=== PATIENT | female | born 1965 | race Caucasian/White ===

== ENCOUNTER 2016-08-24 11:32 | Emergency (ER) | payer BC ==
--- NOTE | 2016-08-24 11:40 | ER Document Report ---
ED Medical Screen (RME) - General Chief Complaint: Knee Injury Stated Complaint: KNEE SWELLING Time seen by provider: 11:38 Mode of Arrival: Wheelchair Information source: Patient Notes: 51-year-old female presents to ED for swelling general body. 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 She goes to pain management. She states that the only thing that makes her swelling go down his Solu-Medrol. States she has pain medication at home but does not when she needs. States she has Rh- and lupus. I have greeted and performed a rapid initial assessment of this patient. A comprehensive ED assessment and evaluation of the patient, analysis of test results and completion of medical decision making process will be conducted by an additional ED providers. TRAVEL OUTSIDE OF THE [place] IN LAST 30 DAYS: No - Related Data Allergies/Adverse Reactions: codeine [Codeine] Allergy (Verified 05/07/16 11:27) ketorolac tromethamine [From Toradol] Allergy (Verified 05/07/16 11:27) morphine [Morphine] Allergy (Verified 05/07/16 11:27) Past Medical History - Social History Family history: Reviewed & Not Pertinent GI Medical History: Reports: Hx Gastroesophageal Reflux Disease, Hx Hepatitis - C Musculoskeltal Medical History: Reports Hx Arthritis - RA, Reports Hx Gout Psychiatric Medical History: Reports: Hx Depression - anxiety Infectious Medical History: Reports: Hx Hepatitis - C Past Surgical History: Reports: Hx Appendectomy, Hx Section, Hx Cholecystectomy, Hx Orthopedic Surgery - L knee, R ankle - Immunizations Immunizations up to date: Yes Hx Diphtheria, Pertussis, Tetanus Vaccination: Yes
[2016-08-24] MEDS ORDERED: DEXAMETHASONE SOD PHOS INJ 10 MG/1 ML VIAL IM ONE (13:10)
--- NOTE | 2016-08-24 13:40 | ER Document Report ---
ED General - General Mode of Arrival: Wheelchair Information source: Patient TRAVEL OUTSIDE OF THE [place] IN LAST 30 DAYS: No - HPI Onset: Other - see above Onset/Duration: Persistent Quality of pain: Achy Associated symptoms: None Similar symptoms previously: Yes Recently seen / treated by doctor: Yes - General Chief Complaint: Hand Swelling Stated Complaint: KNEE SWELLING Notes: Patient is a 51-year-old female that presents to the emergency department today with complaints of a couple of weeks of "joint pain". Patient has a history of rheumatoid arthritis and lupus. Patient states her route sales driver will not put her on her usual RA medicine because of tooth infections, he states that if she is on immunosuppressant medication that the infection in her teeth can kill her. Patient states her pain is in her knees bilaterally as well as her hands. Patient states she needs steroids to help decrease inflammation. (KAVITA SIDDIQUI) - Related Data Allergies/Adverse Reactions: codeine [Codeine] Allergy (Verified 08/24/16 11:40) ketorolac tromethamine [From Toradol] Allergy (Verified 08/24/16 11:40) morphine [Morphine] Allergy (Verified 08/24/16 11:40) Past Medical History - General Information source: Patient - Social History Smoking Status: Current Every Day Smoker Cigarette use (# per day): Yes Chew tobacco use (# tins/day): No Frequency of alcohol use: None Drug Abuse: None Lives with: Family Family History: Reviewed & Not Pertinent, Other - Lupus Patient has suicidal ideation: No Patient has homicidal ideation: No GI Medical History: Reports: Hx Gastroesophageal Reflux Disease, Hx Hepatitis - C Musculoskeltal Medical History: Reports Hx Arthritis - RA, Reports Hx Gout, Reports Other - Lupus Psychiatric Medical History: Reports: Hx Depression - anxiety Infectious Medical History: Reports: Hx Hepatitis - C Past Surgical History: Reports: Hx Appendectomy, Hx Section, Hx Cholecystectomy, Hx Orthopedic Surgery - L knee, R ankle - Immunizations Immunizations up to date: Yes Hx Diphtheria, Pertussis, Tetanus Vaccination: Yes Review of Systems - Review of Systems Constitutional: No symptoms reported EENT: No symptoms reported Cardiovascular: No symptoms reported Respiratory: No symptoms reported Gastrointestinal: No symptoms reported Genitourinary: No symptoms reported Female Genitourinary: No symptoms reported Musculoskeletal: See HPI, Joint pain - bilateral knees, hands, and wrist pain Skin: No symptoms reported Hematologic/Lymphatic: No symptoms reported Neurological/Psychological: No symptoms reported -: Yes All other systems reviewed and negative Physical Exam - General General appearance: Appears well, Alert In distress: None - HEENT Head: Normocephalic, Atraumatic Eyes: Normal Conjunctiva: Normal Extraocular movements intact: Yes - Respiratory Respiratory status: No respiratory distress Chest status: Nontender - Abdominal Inspection: Normal Distension: No distension - Extremities General upper extremity: Other - complains of pain in hands/wrists General lower extremity: Other - complains of pain with palpation of knees bilaterally - Neurological Neuro grossly intact: Yes Cognition: Normal Orientation: AAOx4 Speech: Normal - Psychological Associated symptoms: Normal affect, Normal mood - Skin Skin Temperature: Warm Skin Moisture: Dry Skin Color: Normal - Vital signs Vitals: Temp Pulse Resp BP Pulse Ox 97.9 F 110 H 18 137/88 H 97 08/24/16 11:37 08/24/16 11:37 08/24/16 11:37 08/24/16 11:37 08/24/16 11:37 (AYE FRANKLIN) (KAVITA SIDDIQUI) Course - Re-evaluation Re-evalutation: 08/24/16 13:53 I personally performed the services described in the documentation, reviewed and edited the documentation which was dictated to my scribe in my presence, and it accurately records my words and actions. Patient presents emergency Department with diffuse joint pain in her hands and knees. She has a history of lupus and rheumatoid arthritis and has a route sales driver that she sees in [place]. Recently her route sales driver told her that he can give her any medications for the rheumatoid arthritis or lupus until she got her teeth pulled. She said she hasn't been able to get in with the dentist yet. She has a local primary care physician and goes to pain management where she gets 2 mg of Dilaudid 4 times a day. On examination she is complaining of pain in her wrist and hands as well as her ankles and feet bilaterally no acute red hot swelling or deformity pulse sensation motor intact no neurological deficits or cellulitis. Requesting a shot of Decadron which I gave her. She does have a follow-up appointment with her route sales driver next week and discussed reasons for ED return sooner (AYE FRANKLIN) - Vital Signs Vital signs: Temp Pulse Resp BP Pulse Ox 98.2 F 101 H 16 146/95 H 97 08/24/16 14:37 08/24/16 14:37 08/24/16 14:37 08/24/16 14:37 08/24/16 14:37 (AYE FRANKLIN) (KAVITA SIDDIQUI) Discharge - Discharge Clinical Impression: Chronic joint pain Condition: Stable Disposition: HOME, SELF-CARE Additional Instructions: Chronic Pain Control, lupus, and rheumatoid arthritis Stress, inactivity, and depression make pain more severe regardless of the cause of the pain. Stress and poor physical condition can cause pain such as headaches and backache. Relaxation: Rest in a quiet place with your eyes closed for 20 minutes twice daily. Concentrate on a pleasant image, or simply "feel" your breathing. Clear your mind. Stress management: Deal with your "stressors." Either take action, or eliminate the stressor from your life. Don't let things hang over you. Accept those things you can't change. Nutrition: Eat small, balanced meals -- don't skip, don't overeat. Meals should be high-carbohydrate, low-sugar, low-fat. Exercise: Exercise helps painful conditions and eases stress. Get 30 minutes of moderate exercise, five days a week. Do an activity that does not flare your pain. Precautions: Pain which continues to disrupt daily activities, or which changes in nature, requires a medical evaluation. Pain Clinic referral is available. We do not manage chronic pain in the Emergency Department. We will try to appropriately help you through an acute flare of your chronic painful condition , but for on-going chronic pain that does not improve, you will need to see your private doctor or painter and grader cork. We do not provide repeated medication management of chronic painful conditions. If you wish, we can provide the name of local pain management physicians. Follow-up with your route sales driver next week as scheduled return for increasing worsening or new symptoms Scribe Documentation - Scribe Written by Tesfaye:: Tesfaye Prakash, 08/24/16 0787 acting as scribe for :: Jesus
[2016-08-24 15:40] VITALS: BP 146/95
== END 2016-08-24 14:37 | disposition home or self-care (01) ==
LOC: ER 11:32
DX: G89.29 Other chronic pain (principal); M25.561 Pain in right knee; M25.562 Pain in left knee; M25.542 Pain in joints of left hand; M25.541 Pain in joints of right hand; M25.539 Pain in unspecified wrist; K04.7 Periapical abscess without sinus; M06.9 Rheumatoid arthritis, unspecified; F17.210 Nicotine dependence, cigarettes, uncomplicated; Z88.5 Allergy status to narcotic agent; Z88.8 Allergy status to other drugs, medicaments and biological substances; Z79.891 Long term (current) use of opiate analgesic
CPT/HCPCS: 99283; 96372; J1100

== ENCOUNTER 2016-12-05 07:40 | Emergency (ER) | payer BC ==
[2016-12-05 07:46] VITALS: BP 140/98
[2016-12-05] MEDS ORDERED: IBUPROFEN 800 MG TABLET PO ONE (08:44)
[2016-12-05] MEDS ORDERED: MELOXICAM 7.5 MG TABLET PO ONE (09:16)
--- NOTE | 2016-12-05 09:16 | ER Document Report ---
HPI - HPI Patient complains to provider of: knee pain Pain Level: 5 Context: Patient is a 51-year-old female presents emergency Department complaining of acute on chronic knee pain. Patient states that she has bilateral chronic knee pain due to osteoarthritis. She states that she has limited mobility due to this diagnosis. She states that on December 02, that she tripped and landed on her knees when she was getting out of the shower. She admits to bilateral knee pain worse on the left than the right constant throbbing pain. She's been taking Tylenol at home with minimal improvement in her symptoms. Patient is established a follow-up with her primary care on December 10. PCP Dr. Dawson - REPRODUCTIVE Reproductive: DENIES: : - DERM Skin Color: Normal Past Medical History - Social History Smoking Status: Current Every Day Smoker Frequency of alcohol use: None Drug Abuse: None Family History: Reviewed & Not Pertinent, Other - Lupus Patient has suicidal ideation: No Patient has homicidal ideation: No Renal/ Medical History: Denies: Hx Peritoneal Dialysis GI Medical History: Reports: Hx Gastroesophageal Reflux Disease, Hx Hepatitis - C Musculoskeltal Medical History: Reports Hx Arthritis - RA, Reports Hx Gout Psychiatric Medical History: Reports: Hx Depression - anxiety Infectious Medical History: Reports: Hx Hepatitis - C Past Surgical History: Reports: Hx Appendectomy, Hx Section, Hx Cholecystectomy, Hx Orthopedic Surgery - L knee, R ankle - Immunizations Immunizations up to date: Yes Hx Diphtheria, Pertussis, Tetanus Vaccination: Yes Vertical Provider Document - CONSTITUTIONAL Agree With Documented VS: Yes Exam Limitations: No Limitations General Appearance: WD/WN, No Apparent Distress - INFECTION CONTROL TRAVEL OUTSIDE OF THE [place] IN LAST 30 DAYS: No - HEENT HEENT: Atraumatic, Normocephalic - NECK Neck: Normal Inspection, Other - Full range of motion. No cervical motion tenderness, spinous processes or paraspinous muscle tenderness. - RESPIRATORY Respiratory: Breath Sounds Normal, No Respiratory Distress, Chest Non-Tender. negative: Rales, Rhonchi, Wheezing O2 Sat by Pulse Oximetry: 97 - CARDIOVASCULAR Cardiovascular: Regular Rate, Regular Rhythm, No Murmur Pulses: Normal: Radial, Dorsalis pedis - MUSCULOSKELETAL/EXTREMETIES Musculoskeletal/Extremeties: MAEW, FROM, Tender - Tenderness palpation mainly on the lateral aspects of bilateral knees. Evidence of soft tissue swelling surrounding the knees that are she states is her baseline. 1+ pitting edema in the pretibial area bilaterally. No evidence of erythema, induration around the joints. - NEURO Level of Consciousness: Awake, Alert, Appropriate Motor/Sensory: No Motor Deficit, No Sensory Deficit - DERM Integumentary: Warm, Dry, No Rash Course - Re-evaluation Re-evalutation: 12/05/16 10:22 Patient is a 51-year-old female who is hemodynamically stable, no acute distress and afebrile. No evidence of septic arthritis upon evaluation. X-ray show evidence of chronic osteoarthritis and minimal joint effusion. Discussed with patient to follow-up with her primary care for chronic pain management and to be referred for orthopedics. - Vital Signs Vital signs: Temp Pulse Resp BP Pulse Ox 98.8 F 117 H 18 140/98 H 97 12/05/16 07:44 12/05/16 07:44 12/05/16 07:44 12/05/16 07:44 12/05/16 07:44 - Diagnostic Test Radiology reviewed: Image reviewed, Reports reviewed Discharge - Discharge Clinical Impression: Osteoarthritis Condition: Good Disposition: HOME, SELF-CARE Instructions: Osteoarthritis ([facility]), Ice & Elevation ([facility]) Additional Instructions: Please take your medication as prescribed. Follow-up with your primary care provider this week or as scheduled Prescriptions: Meloxicam [Mobic 7.5 Mg Tablet] 7.5 mg PO BID #20 tablet Prednisone [Deltasone 10 mg Tablet] 10 mg PO ASDIR PRN #21 tablet PRN Reason: Forms: Elevated Blood Pressure Referrals: RODOLFO DAWSON MD [NO LOCAL MD] - Follow up as needed
== END 2016-12-05 09:22 | disposition home or self-care (01) ==
LOC: ER 07:40
DX: M17.0 Bilateral primary osteoarthritis of knee (principal); M25.561 Pain in right knee; M25.562 Pain in left knee; W19.XXXA Unspecified fall, initial encounter; Y93.89 Activity, other specified; G89.29 Other chronic pain; F17.200 Nicotine dependence, unspecified, uncomplicated
CPT/HCPCS: 99284

== ENCOUNTER 2017-02-25 12:42 | Inpatient (IN) | payer BC ==
[2017-02-25] MEDS ORDERED: ONDANSETRON 4 MG TAB.RAPDIS PO ONE (13:14)
[2017-02-25] MEDS ORDERED: NORMAL SALINE 1000 ML 1,000 ML IV ONE (13:15)
--- NOTE | 2017-02-25 13:18 | ER Document Report ---
ED Medical Screen (RME) - General Chief Complaint: Shortness Of Breath Stated Complaint: VOMITING Time Seen by Provider: 02/25/17 13:14 Mode of Arrival: Ambulatory Information source: Patient TRAVEL OUTSIDE OF THE [place] IN LAST 30 DAYS: No - HPI Onset: Other - 4 DAYS Onset/Duration: Gradual Quality of pain: Achy, Dull Severity: Moderate Associated Symptoms: Chills, Diarrhea, Nausea, Sweating, Vomiting Exacerbated by: Food Relieved by: Denies Similar symptoms previously: Yes - NOT RECENT Recently seen / treated by doctor: No - Related Data Allergies/Adverse Reactions: codeine [Codeine] Allergy (Verified 02/25/17 12:55) ketorolac tromethamine [From Toradol] Allergy (Verified 02/25/17 12:55) morphine [Morphine] Allergy (Verified 02/25/17 12:55) Past Medical History - Social History Family history: Reviewed & Not Pertinent Renal/ Medical History: Denies: Hx Peritoneal Dialysis GI Medical History: Reports: Hx Gastroesophageal Reflux Disease, Hx Hepatitis - C Musculoskeltal Medical History: Reports Hx Arthritis - RA, Reports Hx Gout, Reports Other - LUPUS?? Psychiatric Medical History: Reports: Hx Depression - anxiety Infectious Medical History: Reports: Hx Hepatitis - C Past Surgical History: Reports: Hx Appendectomy, Hx Section, Hx Cholecystectomy, Hx Orthopedic Surgery - L knee, R ankle - Immunizations Immunizations up to date: Yes Hx Diphtheria, Pertussis, Tetanus Vaccination: Yes Review of Systems - Review of Systems Constitutional: See HPI EENT: No symptoms reported Respiratory: No symptoms reported Gastrointestinal: See HPI Genitourinary: No symptoms reported Physical Exam - Vital signs Vitals: Temp Pulse Resp BP Pulse Ox 98.7 F 116 H 18 137/76 H 96 02/25/17 12:52 02/25/17 12:52 02/25/17 12:52 02/25/17 12:52 02/25/17 12:52 Interpretation: Tachycardic. No: Hypotensive, Tachypneic, Febrile - General General appearance: Alert In distress: Mild - Respiratory Respiratory status: No respiratory distress Course - Vital Signs Vital signs: Temp Pulse Resp BP Pulse Ox 98.7 F 116 H 18 137/76 H 96 02/25/17 12:52 02/25/17 12:52 02/25/17 12:52 02/25/17 12:52 02/25/17 12:52
[2017-02-25] MEDS ORDERED: ONDANSETRON 4 MG TAB.RAPDIS ONE (14:30)
[2017-02-25 14:42] LABS: HEMATOCRIT 32.6 % (36.0-47.0); HEMOGLOBIN 10.8 g/dL (12.0-15.5); HGB HCT DIFFERENCE -0.2; MEAN CORPUSCULAR HEMOGLOBIN 27.6 pg (27.0-33.4); MEAN CORPUSCULAR HGB CONC 33.1 g/dL (32.0-36.0); MEAN CORPUSCULAR VOLUME 83 fl (80-97); RED BLOOD COUNT 3.91 10^6/uL (3.72-5.28); RED CELL DISTRIBUTION WIDTH 17.4 % (11.5-14.0); WHITE BLOOD COUNT 24.7 10^3/uL (4.0-10.5)
[2017-02-25 14:48] LABS: BAND NEUTROPHILS % (MANUAL) 4 % (3-5); BASOPHILS % (MANUAL) 0 % (0-2); EOSINOPHILS % (MANUAL) 1 % (0-6); LYMPHOCYTES % (MANUAL) 12 % (13-45); TOTAL CELLS COUNTED 100
--- NOTE | 2017-02-25 14:50 | ER Document Report ---
ED General - General Chief Complaint: Shortness Of Breath Stated Complaint: VOMITING Time Seen by Provider: 02/25/17 13:14 Mode of Arrival: Ambulatory Information source: Patient TRAVEL OUTSIDE OF THE [place] IN LAST 30 DAYS: No - HPI Patient complains to provider of: Cough, shortness of breath, diarrhea Onset: Last week Onset/Duration: Persistent, Worse Quality of pain: Achy Severity: Mild Pain Level: 2 Associated symptoms: Body/muscle aches, Nonproductive cough, Diarrhea, Nausea, Vomiting, Shortness of breath Exacerbated by: Coughing Relieved by: Denies Notes: Patient is a 52-year-old female with history of SLE and rheumatoid arthritis, who presents to the emergency room with 1 week history of worsening cough, shortness of breath, difficulty breathing at times, and vomiting over the past 3 -4 days, she also reports a fever, reports feeling this way in the past when she was diagnosed with pneumonia, patient quit smoking approximately 1 week ago when symptoms began - Related Data Allergies/Adverse Reactions: codeine [Codeine] Allergy (Verified 02/25/17 17:03) ketorolac tromethamine [From Toradol] Allergy (Verified 02/25/17 17:03) morphine [Morphine] Allergy (Verified 02/25/17 17:03) Home Medications: Current Home Medications Adalimumab [Humira] 40 mg SQ ASDIR PRN 02/25/17 [History] Dexlansoprazole [Dexilant 60 mg Capsule] 60 mg PO QAM 02/25/17 [History] Hydromorphone HCl [Dilaudid 2 mg Tablet] 2 mg PO 5XDP PRN 02/25/17 [History] Hydroxychloroquine Sulfate 200 mg PO BID 02/25/17 [History] Sulfasalazine 3 tab PO BID 02/25/17 [History] Past Medical History - General Information source: Patient - Social History Smoking Status: Former Smoker - Quit 1 week ago Family History: Reviewed & Not Pertinent, Other - Lupus Renal/ Medical History: Denies: Hx Peritoneal Dialysis GI Medical History: Reports: Hx Gastroesophageal Reflux Disease, Hx Hepatitis - C Musculoskeltal Medical History: Reports Hx Arthritis - RA, Reports Hx Gout, Reports Other - LUPUS?? Psychiatric Medical History: Reports: Hx Depression - anxiety Infectious Medical History: Reports: Hx Hepatitis - C Past Surgical History: Reports: Hx Appendectomy, Hx Section, Hx Cholecystectomy, Hx Orthopedic Surgery - L knee, R ankle - Immunizations Immunizations up to date: Yes Hx Diphtheria, Pertussis, Tetanus Vaccination: Yes Review of Systems - Review of Systems Constitutional: See HPI EENT: No symptoms reported Cardiovascular: No symptoms reported Respiratory: See HPI Gastrointestinal: See HPI Genitourinary: No symptoms reported Female Genitourinary: No symptoms reported Musculoskeletal: No symptoms reported Skin: No symptoms reported Hematologic/Lymphatic: No symptoms reported Neurological/Psychological: No symptoms reported -: Yes All other systems reviewed and negative Physical Exam - Vital signs Vitals: Temp Pulse Resp BP Pulse Ox 98.7 F 116 H 18 137/76 H 96 02/25/17 12:52 02/25/17 12:52 02/25/17 12:52 02/25/17 12:52 02/25/17 12:52 Interpretation: Tachycardic - General General appearance: Alert In distress: None - HEENT Head: Normocephalic, Atraumatic Eyes: Normal Conjunctiva: Normal Extraocular movements intact: Yes Eyelashes: Normal Pupils: PERRL Sinus: Normal Nasal: Normal Mouth/Lips: Normal Mucous membranes: Normal Pharynx: Normal Neck: Normal - Respiratory Respiratory status: No respiratory distress Chest status: Nontender Breath sounds: Nonproductive cough, Rhonchi Chest palpation: Normal - Cardiovascular Rhythm: Regular Heart sounds: Normal auscultation Murmur: No - Abdominal Inspection: Normal Distension: No distension Bowel sounds: Normal Tenderness: Tender - Epigastric Organomegaly: No organomegaly - Back Back: Normal, Nontender - Extremities General upper extremity: Normal inspection, Nontender, Normal color, Normal ROM , Normal temperature General lower extremity: Normal inspection, Nontender, Normal color, Normal ROM , Normal temperature, Normal weight bearing. No: Zhanna's sign - Neurological Neuro grossly intact: Yes Cognition: Normal Orientation: AAOx4 Jose David Coma Scale Eye Opening: Spontaneous Silex Coma Scale Verbal: Oriented Silex Coma Scale Motor: Obeys Commands Jose David Coma Scale Total: 15 Speech: Normal Motor strength normal: LUE, RUE, LLE, RLE Sensory: Normal - Psychological Associated symptoms: Normal affect, Normal mood - Skin Skin Temperature: Warm Skin Moisture: Dry Skin Color: Normal Course - Re-evaluation Re-evalutation: 02/25/17 18:41 Patient with marked leukocytosis, patchy infiltrates on left lung on chest x-ray , mild hypoxia with tachycardia, admitted to the hospitalist service for pneumonia, patient is also immunosuppressed if she takes medication for rheumatoid arthritis and SLE, plan was discussed with patient and she is in agreement - Vital Signs Vital signs: Temp Pulse Resp BP Pulse Ox 98.6 F 86 20 102/62 100 02/25/17 17:00 02/25/17 14:36 02/25/17 18:00 02/25/17 14:36 02/25/17 18:00 - Laboratory Result Diagrams: 02/25/17 13:55 02/25/17 14:54 Laboratory results interpreted by me: 02/25/17 02/25/17 13:55 14:54 WBC 24.7 H Hgb 10.8 L Hct 32.6 L RDW 17.4 H Plt Count 467 H Seg Neuts % (Manual) 81 H Lymphocytes % (Manual) 12 L Monocytes % (Manual) 2 L Abs Neuts (Manual) 21.0 H ESR 101 H Potassium 2.7 L* Chloride 97 L Creatinine 0.50 L Direct Bilirubin 0.5 H Lipase < 10.0 L - Diagnostic Test Radiology reviewed: Image reviewed, Reports reviewed - Transfer of Care Care transferred to following provider: Dr. Faustin Critical Care Note - Critical Care Note Total time excluding time spent on procedures (mins): 30 Comments: Patient with signs and symptoms consistent with sepsis, she is tachycardic, with hypoxia, marked leukocytosis, and evidence of pneumonia on chest x-ray, admitted to the [facility] for further evaluation and treatment Discharge - Discharge Clinical Impression: Hypokalemia Pneumonia Qualifiers: Pneumonia type: due to unspecified organism Laterality: left Lung location: unspecified part of lung Qualified Code(s): J18.9 - Pneumonia, unspecified organism Sepsis Qualifiers: Sepsis type: sepsis due to unspecified organism Qualified Code(s): A41.9 - Sepsis, unspecified organism Respiratory failure Qualifiers: Chronicity: acute Respiratory failure complication: hypoxia Qualified Code(s): J96.01 - Acute respiratory failure with hypoxia Condition: Fair Disposition: ADMITTED INPATIENT Admitting Provider: Hospitalist Unit Admitted: [facility]
[2017-02-25 14:57] LABS: ANISOCYTOSIS 1+; HYPOCHROMASIA SLIGHT; TOXIC GRANULATION SLIGHT; TOXIC VACUOLATION PRESENT
[2017-02-25] MEDS ORDERED: HYDROMORPHONE HCL INJ/PF 2 MG/ML AMPULE IV ONE (15:35)
[2017-02-25 15:37] LABS: ERYTHROCYTE SEDIMENTATION RATE 101 mm/hr (0-30)
[2017-02-25 15:39] LABS: ALANINE AMINOTRANSFERASE 14 U/L (9-52); ALBUMIN 3.6 g/dL (3.5-5.0); ALKALINE PHOSPHATASE 87 U/L (38-126); ANION GAP 15 (5-19); ASPARTATE AMINO TRANSFERASE 15 U/L (14-36); BILIRUBIN,DIRECT 0.5 mg/dL (0.0-0.4); BILIRUBIN,TOTAL 0.7 mg/dL (0.2-1.3); BLOOD UREA NITROGEN 11 mg/dL (7-20); CARBON DIOXIDE 25 mmol/L (22-30); CHLORIDE 97 mmol/L (98-107); GLUCOSE 79 mg/dL (75-110); LIPASE < 10.0 U/L (23-300); SODIUM 137.1 mmol/L (137-145); TOTAL PROTEIN 7.3 g/dL (6.3-8.2)
[2017-02-25 15:41] LABS: POTASSIUM 2.7 mmol/L (3.6-5.0)
[2017-02-25] MEDS ORDERED: POTASSIUM CHLORIDE 10 MEQ TABLET.SA PO ONE (15:43)
[2017-02-25] MEDS ORDERED: AZITHROMYCIN INJ 500 MG VIAL IV ONE (16:08)
[2017-02-25] MEDS ORDERED: CEFTRIAXONE INJ 1000 MG VIAL IV ONE (16:08)
--- NOTE | 2017-02-25 16:08 | RADIOLOGY REPORT (SQ) ---
EXAM DESCRIPTION: CHEST PA/LAT COMPLETED DATE/TIME: 02/25/2017 3:56 pm REASON FOR STUDY: cough COMPARISON: March 2016 EXAM PARAMETERS: NUMBER OF VIEWS: two views TECHNIQUE: Digital Frontal and Lateral radiographic views of the chest acquired. RADIATION DOSE: NA LIMITATIONS: none FINDINGS: LUNGS AND PLEURA: Fairly diffuse patchy airspace densities are identified throughout the l eft lung most consistent with a patchy pneumonic infiltrate. The right lung is clear and well expand ed. No pleural effusions are identified. No pneumothorax is seen. MEDIASTINUM AND HILAR STRUCTURES: No masses or contour abnormalities. HEART AND VASCULAR STRUCTURES: Heart normal size. No evidence for failure. BONES: No acute findings. HARDWARE: None in the chest. OTHER: No other significant finding. IMPRESSION: Fairly diffuse patchy airspace densities in the left lung as noted above most consistent with a patchy pneumonic infiltrate. TECHNICAL DOCUMENTATION: JOB ID: [id number] [employer]- All Rights Reserved
[2017-02-25] MEDS ORDERED: NORMAL SALINE 1000 ML 1,000 ML IV PRN (16:32)
[2017-02-25] MEDS ORDERED: ALBUTEROL SULFATE 0.083% NEB 2.5 MG/3 ML AMPUL NEB PRN (16:36)
[2017-02-25] MEDS ORDERED: POTASSI CL 20 MEQ/50 ML RIDER 20 MEQ/50 ML RTUPB IV ONE (17:00)
[2017-02-25] MEDS ORDERED: HYDROCORTISONE SOD SUCCINATE INJ/PF 100 MG/2 ML SDV IV ONE (17:00)
--- NOTE | 2017-02-25 17:13 | PDOC H&P ---
History of Present Illness Admission Date/PCP: 02/25/17 16:36 PCP: RODOLFO SCOTT MD Patient Scheduling Coordinator: Dr. Cobos in [facility] Patient complains of: Cough History of Present Illness: CHERIE PERDUE is a 52 year old female with past medical history of SLE, RA on Humira presents with one-week duration worsening cough, shortness of breath, loose stools, fevers. Patient was smoking up until the onset of her illness. In the emergency department patient was noted to have oxygen saturation 85% on room air. She recovered with nasal cannula oxygen. She was found to have left lung field pneumonia on chest x-ray. Medications listed below have not been verified. Past Medical History Cardiac Medical History: Reports: None Pulmonary Medical History: Reports: None EENT Medical History: Reports: None Neurological Medical History: Reports: None Endocrine Medical History: Reports: None Renal/ Medical History: Reports: None Malignancy Medical History: Reports: None GI Medical History: Reports: Gastroesophageal Reflux Disease, Hepatitis - C Musculoskeltal Medical History: Reports: Arthritis - RA, Gout, Other - SLE Psychiatric Medical History: Reports: Depression, General Anxiety Disorder Past Surgical History Past Surgical History: Reports: Appendectomy, Section, Cholecystectomy , Orthopedic Surgery - L knee, R ankle Social History Information Source: Patient Lives with: Spouse/Significant other Smoking Status: Current Every Day Smoker Frequency of Alcohol Use: None Hx Recreational Drug Use: No - Advance Directive Resuscitation Status: Full Code Family History Family History: Other - Lupus Parental Family History Reviewed: Yes Children Family History Reviewed: Yes Sibling(s) Family History Reviewed.: Yes Medication/Allergy Home Medications: Adalimumab [Humira] 40 mg SQ ASDIR PRN 02/25/17 Dexlansoprazole [Dexilant 60 mg Capsule] 60 mg PO QAM 02/25/17 Hydroxychloroquine Sulfate 200 mg PO BID 02/25/17 Sulfasalazine 3 tab PO BID 02/25/17 Allergies/Adverse Reactions: codeine [Codeine] Allergy (Verified 02/25/17 17:03) ketorolac tromethamine [From Toradol] Allergy (Verified 02/25/17 17:03) morphine [Morphine] Allergy (Verified 02/25/17 17:03) Review of Systems Constitutional: PRESENT: chills, fatigue, fever(s), weakness. ABSENT: headache( s), weight gain, weight loss Eyes: ABSENT: visual disturbances Ears: ABSENT: hearing changes Cardiovascular: PRESENT: dyspnea on exertion. ABSENT: chest pain, edema, orthropnea, palpitations Respiratory: PRESENT: cough, dyspnea. ABSENT: hemoptysis Gastrointestinal: ABSENT: abdominal pain, constipation, diarrhea, hematemesis, hematochezia, nausea, vomiting Genitourinary: ABSENT: dysuria, hematuria Musculoskeletal: ABSENT: joint swelling Integumentary: ABSENT: rash, wounds Neurological: ABSENT: abnormal gait, abnormal speech, confusion, dizziness, focal weakness, syncope Psychiatric: ABSENT: anxiety, depression, homidical ideation, suicidal ideation Endocrine: ABSENT: cold intolerance, heat intolerance, polydipsia, polyuria Hematologic/Lymphatic: ABSENT: easy bleeding, easy bruising Physical Exam Vital Signs: Temp Pulse Resp BP Pulse Ox 98.6 F 86 18 102/62 83 L 02/25/17 17:00 02/25/17 14:36 02/25/17 14:36 02/25/17 14:36 02/25/17 14:36 PHYSICAL EXAM: GENERAL: Ill-appearing, no acute distress HEENT: Normocephalic, no scleral icterus, conjunctiva clear, EOEM intact, PERRLA , moist mucous membranes NECK: trachea midline, no thyromegally RESPIRATORY: Clear to auscultation, no overt wheezes or rhonchi in all posterior lung fry CARDIAC: Regular rate and rhythm, no murmur/cale/rub ABDOMEN: Soft, no distension, no tenderness, no guarding, normal bowel sounds, negative Sheldon sign RECTAL: deferred : deferred EXTREMITIES: No edema, cyanosis, clubbing MUSCULOSKELETAL: No joint swelling or deformity VASCULAR: normal peripheral pulses NEUROLOGIC: Alert, oriented to person/place/time, normal speech, cranial nerves grossly intact, 5/5 strength in all extremities, tactile sensation intact in all extremities SKIN: No rash, no wounds, no worrisome skin lesions PSYCHIATRIC: Normal mood, normal affect Results Laboratory Results: Labs- All tests 24 hr 02/25/17 02/25/17 02/25/17 13:55 13:55 14:54 WBC 24.7 H RBC 3.91 Hgb 10.8 L Hct 32.6 L MCV 83 MCH 27.6 MCHC 33.1 RDW 17.4 H Plt Count 467 H Total Counted 100 Seg Neutrophils % Not Reportable Seg Neuts % (Manual) 81 H Band Neutrophils % 4 Lymphocytes % Not Reportable Lymphocytes % (Manual) 12 L Monocytes % Not Reportable Monocytes % (Manual) 2 L Eosinophils % Not Reportable Eosinophils % (Manual) 1 Basophils % Not Reportable Basophils % (Manual) 0 Absolute Neutrophils Not Reportable Abs Neuts (Manual) 21.0 H Absolute Lymphocytes Not Reportable Abs Lymphs (Manual) 3.0 Absolute Monocytes Not Reportable Abs Monocytes (Manual) 0.5 Absolute Eosinophils Not Reportable Absolute Eos (Manual) 0.2 Absolute Basophils Not Reportable Abs Basophils (Manual) 0.0 Toxic Granulation SLIGHT Toxic Vacuolation PRESENT Platelet Comment INCREASED Hypochromasia SLIGHT Anisocytosis 1+ ESR 101 H Sodium Cancelled 137.1 Potassium Cancelled 2.7 L* Chloride Cancelled 97 L Carbon Dioxide Cancelled 25 Anion Gap Cancelled 15 BUN Cancelled 11 Creatinine Cancelled 0.50 L Est GFR ( Amer) Cancelled > 60 Est GFR (Non-Af Amer) Cancelled > 60 Glucose Cancelled 79 Calcium Cancelled 9.0 Magnesium Total Bilirubin Cancelled 0.7 Direct Bilirubin Cancelled 0.5 H Indirect Bilirubin Cancelled Not Reportable Neonat Total Bilirubin Cancelled Not Reportable AST Cancelled 15 ALT Cancelled 14 Alkaline Phosphatase Cancelled 87 Total Protein Cancelled 7.3 Albumin Cancelled 3.6 Lipase Cancelled < 10.0 L 02/25/17 14:54 WBC RBC Hgb Hct MCV MCH MCHC RDW Plt Count Total Counted Seg Neutrophils % Seg Neuts % (Manual) Band Neutrophils % Lymphocytes % Lymphocytes % (Manual) Monocytes % Monocytes % (Manual) Eosinophils % Eosinophils % (Manual) Basophils % Basophils % (Manual) Absolute Neutrophils Abs Neuts (Manual) Absolute Lymphocytes Abs Lymphs (Manual) Absolute Monocytes Abs Monocytes (Manual) Absolute Eosinophils Absolute Eos (Manual) Absolute Basophils Abs Basophils (Manual) Toxic Granulation Toxic Vacuolation Platelet Comment Hypochromasia Anisocytosis ESR Sodium Potassium Chloride Carbon Dioxide Anion Gap BUN Creatinine Est GFR ( Amer) Est GFR (Non-Af Amer) Glucose Calcium Magnesium 1.7 Total Bilirubin Direct Bilirubin Indirect Bilirubin Neonat Total Bilirubin AST ALT Alkaline Phosphatase Total Protein Albumin Lipase Impressions: Chest X-Ray 02/25/17 15:26 IMPRESSION: Fairly diffuse patchy airspace densities in the left lung as noted above most consistent with a patchy pneumonic infiltrate. Assessment & Plan - Diagnosis (1) Respiratory failure Qualifiers: Chronicity: acute Respiratory failure complication: hypoxia Qualified Code(s): J96.01 - Acute respiratory failure with hypoxia Is this a current diagnosis for this admission?: YesPlan: Oxygen supplementation to maintain O2 sat greater than 95%. As needed albuterol nebulizer treatments. (2) Sepsis Qualifiers: Sepsis type: sepsis due to unspecified organism Qualified Code(s): A41.9 - Sepsis, unspecified organism Is this a current diagnosis for this admission?: YesPlan: Secondary to pneumonia. Complicated by chronic immunosuppressive therapy. IV antibiotic management as mentioned below. Start IV Solu-Cortef as patient is frequently on prednisone. (3) Pneumonia Qualifiers: Pneumonia type: due to unspecified organism Laterality: left Lung location: unspecified part of lung Qualified Code(s): J18.9 - Pneumonia, unspecified organism Is this a current diagnosis for this admission?: YesPlan: Likely bacterial. Continue IV Rocephin and IV azithromycin initiated in the emergency department. Check blood cultures and sputum culture. (4) Rheumatoid arthritis Is this a current diagnosis for this admission?: YesPlan: Hold Humira. Patient is normally followed by Dr. Cobos of rheumatology in [facility]. (5) SLE (systemic lupus erythematosus) Is this a current diagnosis for this admission?: Yes (6) Hypokalemia Is this a current diagnosis for this admission?: YesPlan: Replace. Repeat labs in morning. Likely secondary to GI losses from diarrhea. (7) Tobacco abuse Is this a current diagnosis for this admission?: YesPlan: Patient states she quit smoking and the onset of this acute illness. (8) Diarrhea Is this a current diagnosis for this admission?: YesPlan: Check stool culture and C. difficile. - Time Time Spent: Greater than 70 Minutes Smoking Cessation Education: 3 to 10 minutes - Inpatient Certification Based on my medical assessment, after consideration of the patient's comorbidities, presenting symptoms, or acuity I expect that the services needed warrant INPATIENT care.: Yes I certify that my determination is in accordance with my understanding of Medicare's requirements for reasonable and necessary INPATIENT services [42 CFR 412.3e].: Yes Medical Necessity: Need For IV Fluids, Need for IV Antibiotics
[2017-02-25] MEDS: POTASSI CL 20 MEQ/50 ML RIDER 50 ML IV SCH ×2 (17:38→21:23)
[2017-02-25] MEDS ORDERED: ENOXAPARIN SODIUM INJ 40 MG/0.4 ML DISP.SYRIN SUBCUT ONE ×2 (18:00→23:45)
[2017-02-25] MEDS: ACETAMINOPHEN 325 MG TABLET PO PRN ×2 (20:06→20:10)
[2017-02-25] MEDS: HYDROCORTISONE SOD SUCCINATE INJ/PF 100 MG/2 ML SDV IV SCH (21:47)
[2017-02-25] MEDS: POTASSI CL 20 MEQ/D5NS 1L 1,000 ML IV PRN (21:48)
[2017-02-25] MEDS: GUAIFENESIN 600 MG TABLET.SA PO SCH (21:49)
[2017-02-25] MEDS: HYDROMORPHONE HCL 2 MG TABLET PO PRN (22:11)
[2017-02-26] MEDS: POTASSI CL 20 MEQ/D5NS 1L 1,000 ML IV PRN (04:35)
[2017-02-26 05:02] LABS: HEMATOCRIT 25.9 % (36.0-47.0); HGB HCT DIFFERENCE -0.4; MEAN CORPUSCULAR HEMOGLOBIN 27.4 pg (27.0-33.4); MEAN CORPUSCULAR HGB CONC 32.9 g/dL (32.0-36.0); MEAN CORPUSCULAR VOLUME 83 fl (80-97); RED BLOOD COUNT 3.11 10^6/uL (3.72-5.28); RED CELL DISTRIBUTION WIDTH 17.1 % (11.5-14.0); WHITE BLOOD COUNT 14.2 10^3/uL (4.0-10.5)
[2017-02-26 05:11] LABS: ANION GAP 10 (5-19); BLOOD UREA NITROGEN 9 mg/dL (7-20); CALCIUM 8.8 mg/dL (8.4-10.2); CARBON DIOXIDE 24 mmol/L (22-30); CHLORIDE 106 mmol/L (98-107); CREATININE RESULT 0.41 mg/dL (0.52-1.25); GLUCOSE 132 mg/dL (75-110); HEMOGLOBIN 8.5 g/dL (12.0-15.5); MAGNESIUM 1.8 mg/dL (1.6-2.3); SODIUM 139.8 mmol/L (137-145)
[2017-02-26] MEDS: HYDROCORTISONE SOD SUCCINATE INJ/PF 100 MG/2 ML SDV IV SCH ×3 (05:13→22:35)
[2017-02-26 05:14] LABS: APPEARANCE,URINE SLIGHTLY-CLOUDY; BILIRUBIN,URINE NEGATIVE (NEGATIVE); GLUCOSE, URINE 50 mg/dL (NEGATIVE); KETONES,URINE 80 mg/dL (NEGATIVE); LEUKOCYTE ESTERASE,URINE NEGATIVE (NEGATIVE); NITRITE,URINE NEGATIVE (NEGATIVE); PROTEIN,URINE NEGATIVE (NEGATIVE); URINE SPECIFIC GRAVITY 1.011; UROBILINOGEN,URINE NEGATIVE mg/dL (<2.0)
[2017-02-26] MEDS: HYDROMORPHONE HCL 2 MG TABLET PO PRN ×5 (05:15→22:49)
[2017-02-26 05:21] LABS: POTASSIUM 3.8 mmol/L (3.6-5.0)
[2017-02-26 05:32] LABS: BASOPHILS % (MANUAL) 0 % (0-2); EOSINOPHILS % (MANUAL) 0 % (0-6); LYMPHOCYTES % (MANUAL) 6 % (13-45); TOTAL CELLS COUNTED 100
[2017-02-26 05:33] LABS: ANISOCYTOSIS 1+; POLYCHROMASIA SLIGHT; ROULEAUX 2+; TOXIC GRANULATION SLIGHT
--- NOTE | 2017-02-26 08:31 | PDOC PROGRESS REPORT ---
Subjective Progress Note for:: 02/26/17 Subjective:: Patient feels subjectively much better today with regards to her shortness of breath. She complains of chronic somatic pain. She also request restarting her stomach medicine (Dexilant). Patient denies fever, chills, headache, new focal weakness, chest pain, abdominal pain, nausea, vomiting, diarrhea, constipation. Physical Exam Vital Signs: Temp Pulse Resp BP Pulse Ox 98.5 F 92 20 128/72 H 95 02/26/17 07:33 02/26/17 07:33 02/26/17 07:33 02/26/17 07:33 02/26/17 07:33 Intake & Output 02/25/17 02/26/17 02/27/17 06:59 06:59 06:59 Intake Total 1598 Balance 1598 Weight 69.2 kg GENERAL: No acute distress HEENT: Conjunctiva clear, nonicteric, moist mucous membranes, no JVD, midline trachea RESPIRATORY: Clear to auscultation bilaterally, no wheezes, no rhonchi CARDIAC: Regular rate and rhythm, no murmurs/gallops/rubs ABDOMEN: Soft, nondistended, nontender, positive bowel sounds, no rebound, no guarding EXTREMETIES: No edema, cyanosis, clubbing NEUROLOGIC: Alert, oriented to person/place/time, CN's grossly intact, no focal deficits SKIN: No rash, wounds PSYCH: Normal mood, normal affect Results Laboratory Results: 02/26/17 04:33 02/26/17 04:33 02/26/17 02/26/17 02/26/17 04:33 04:33 04:33 WBC 14.2 H RBC 3.11 L Hgb 8.5 L D Hct 25.9 L MCV 83 MCH 27.4 MCHC 32.9 RDW 17.1 H Plt Count 368 Seg Neutrophils % Not Reportable Lymphocytes % Not Reportable Monocytes % Not Reportable Eosinophils % Not Reportable Basophils % Not Reportable Absolute Neutrophils Not Reportable Absolute Lymphocytes Not Reportable Absolute Monocytes Not Reportable Absolute Eosinophils Not Reportable Absolute Basophils Not Reportable Retic Count (auto) 1.26 Absolute Retic 0.040 Sodium 139.8 Potassium 3.8 D Chloride 106 Carbon Dioxide 24 Anion Gap 10 BUN 9 Creatinine 0.41 L Est GFR ( Amer) > 60 Est GFR (Non-Af Amer) > 60 Glucose 132 H Calcium 8.8 Magnesium 1.8 Urine Color Urine Appearance Urine pH Ur Specific [place] Urine Protein Urine Glucose (UA) Urine Ketones Urine Blood Urine Nitrite Ur Leukocyte Esterase Urine WBC (Auto) Urine RBC (Auto) 02/26/17 04:40 WBC RBC Hgb Hct MCV MCH MCHC RDW Plt Count Seg Neutrophils % Lymphocytes % Monocytes % Eosinophils % Basophils % Absolute Neutrophils Absolute Lymphocytes Absolute Monocytes Absolute Eosinophils Absolute Basophils Retic Count (auto) Absolute Retic Sodium Potassium Chloride Carbon Dioxide Anion Gap BUN Creatinine Est GFR ( Amer) Est GFR (Non-Af Amer) Glucose Calcium Magnesium Urine Color YELLOW Urine Appearance SLIGHTLY-CLOUDY Urine pH 6.0 Ur Specific [place] 1.011 Urine Protein NEGATIVE Urine Glucose (UA) 50 H Urine Ketones 80 H Urine Blood NEGATIVE Urine Nitrite NEGATIVE Ur Leukocyte Esterase NEGATIVE Urine WBC (Auto) 5 Urine RBC (Auto) 4 Impressions: Chest X-Ray 02/25/17 15:26 IMPRESSION: Fairly diffuse patchy airspace densities in the left lung as noted above most consistent with a patchy pneumonic infiltrate. Assessment & Plan - Diagnosis (1) Respiratory failure Qualifiers: Chronicity: acute Respiratory failure complication: hypoxia Qualified Code(s): J96.01 - Acute respiratory failure with hypoxia Is this a current diagnosis for this admission?: YesPlan: Stable on nasal cannula oxygen. Wean off as tolerated. (2) Sepsis Qualifiers: Sepsis type: sepsis due to unspecified organism Qualified Code(s): A41.9 - Sepsis, unspecified organism Is this a current diagnosis for this admission?: YesPlan: Much improved. Secondary to pneumonia. (3) Pneumonia Qualifiers: Pneumonia type: due to unspecified organism Laterality: left Lung location: unspecified part of lung Qualified Code(s): J18.9 - Pneumonia, unspecified organism Is this a current diagnosis for this admission?: YesPlan: Likely bacterial. Continue IV Rocephin and IV azithromycin initiated in the emergency department pending further blood and sputum culture. (4) Rheumatoid arthritis Is this a current diagnosis for this admission?: YesPlan: Hold Humira and Plaquenil. Patient is normally followed by Dr. Cobos of rheumatology in [facility]. (5) SLE (systemic lupus erythematosus) Is this a current diagnosis for this admission?: Yes (6) Hypokalemia Is this a current diagnosis for this admission?: Yes (7) Tobacco abuse Is this a current diagnosis for this admission?: Yes (8) Diarrhea Is this a current diagnosis for this admission?: YesPlan: Check stool culture and C. difficile. (9) Chronic pain Is this a current diagnosis for this admission?: YesPlan: Chronic opiate dependent. Continue Dilaudid. - Time Time Spent with patient: 35 or more minutes
[2017-02-26] MEDS: GUAIFENESIN 600 MG TABLET.SA PO SCH ×2 (09:18→22:35)
[2017-02-26] MEDS: ENOXAPARIN SODIUM INJ 40 MG/0.4 ML DISP.SYRIN SUBCUT SCH (09:19)
[2017-02-26] MEDS ORDERED: LANSOPRAZOLE 30 MG TAB.RAP.DR PO ONE (10:00)
[2017-02-26] MEDS ORDERED: SULFASALAZINE 500 MG TABLET.DR PO ONE (11:00)
[2017-02-26] MEDS: SULFASALAZINE 500 MG TABLET.DR PO SCH (17:57)
[2017-02-26] MEDS ORDERED: CEFTRIAXONE 1 GM/D5W RTU 1 GM/50 ML RTUPB IV SCH (18:00)
[2017-02-26] MEDS ORDERED: AZITHROMYCIN 500 MG in DEXTROSE 5%-WATER 250 ML IV SCH (18:00)
[2017-02-27] MEDS: HYDROCORTISONE SOD SUCCINATE INJ/PF 100 MG/2 ML SDV IV SCH (05:16)
[2017-02-27] MEDS: HYDROMORPHONE HCL 2 MG TABLET PO PRN ×2 (05:16→09:21)
[2017-02-27 05:36] LABS: ABSOLUTE BASOPHILS # (AUTO) 0.1 10^3/uL (0.0-0.2); ABSOLUTE LYMPHOCYTES (AUTO) 1.2 10^3/uL (0.5-4.7); ABSOLUTE MONOCYTES (AUTO) 0.7 10^3/uL (0.1-1.4); ABSOLUTE NEUT (AUTO) 11.6 10^3/uL (1.7-8.2); BASOPHILS % (AUTO) 0.4 % (0-2); EOSINOPHILS % (AUTO) 0.1 % (0-6); HEMATOCRIT 26.3 % (36.0-47.0); HEMOGLOBIN 8.7 g/dL (12.0-15.5); HGB HCT DIFFERENCE -0.2; LYMPHOCYTES % (AUTO) 8.9 % (13-45); MEAN CORPUSCULAR HEMOGLOBIN 27.5 pg (27.0-33.4); MEAN CORPUSCULAR HGB CONC 33.2 g/dL (32.0-36.0); MEAN CORPUSCULAR VOLUME 83 fl (80-97); RED BLOOD COUNT 3.17 10^6/uL (3.72-5.28); SEGMENTED NEUTROPHILS % (AUTO) 85.6 % (42-78); WHITE BLOOD COUNT 13.5 10^3/uL (4.0-10.5)
[2017-02-27 05:53] LABS: ANION GAP 8 (5-19); BLOOD UREA NITROGEN 11 mg/dL (7-20); CARBON DIOXIDE 26 mmol/L (22-30); CHLORIDE 108 mmol/L (98-107); CREATININE RESULT 0.44 mg/dL (0.52-1.25); GLUCOSE 149 mg/dL (75-110); POTASSIUM 3.8 mmol/L (3.6-5.0); SODIUM 142.4 mmol/L (137-145)
[2017-02-27] MEDS ORDERED: LANSOPRAZOLE 30 MG TAB.RAP.DR PO SCH (08:00)
[2017-02-27 08:05] VITALS: BP 135/77
[2017-02-27] MEDS: GUAIFENESIN 600 MG TABLET.SA PO SCH (09:20)
[2017-02-27] MEDS: ENOXAPARIN SODIUM INJ 40 MG/0.4 ML DISP.SYRIN SUBCUT SCH (09:21)
[2017-02-27] MEDS: SULFASALAZINE 500 MG TABLET.DR PO SCH (09:22)
--- NOTE | 2017-02-27 10:48 | PDOC DISCHARGE SUMMARY ---
General - Admit/Disc Date/PCP Admission Date/Primary Care Provider: 02/25/17 16:36 RODOLFO SCOTT MD Discharge Date: 02/27/17 - Discharge Diagnosis (1) Respiratory failure Is this a current diagnosis for this admission?: Yes (2) Sepsis Is this a current diagnosis for this admission?: Yes (3) Pneumonia Is this a current diagnosis for this admission?: Yes (4) Rheumatoid arthritis Is this a current diagnosis for this admission?: Yes (5) SLE (systemic lupus erythematosus) Is this a current diagnosis for this admission?: Yes (6) Hypokalemia Is this a current diagnosis for this admission?: Yes (7) Tobacco abuse Is this a current diagnosis for this admission?: Yes (8) Diarrhea Is this a current diagnosis for this admission?: Yes (9) Chronic pain Is this a current diagnosis for this admission?: Yes - Additional Information Resuscitation Status: Full Code Discharge Diet: Regular Discharge Activity: Activity As Tolerated Home Medications: Dexlansoprazole [Dexilant 60 mg Capsule] 60 mg PO QAM 02/25/17 Hydromorphone HCl [Dilaudid 2 mg Tablet] 2 mg PO 5XDP PRN 02/25/17 Sulfasalazine 3 tab PO BID 02/25/17 Duloxetine HCl [Cymbalta 20 Mg Capsule.Dr] 20 mg PO DAILY #30 capsule.dr Guaifenesin [Mucinex Sr 600 mg Tablet.sa] 600 mg PO Q12 #20 tablet.sa 02/27/17 Levofloxacin [Levaquin 750 mg Tablet] 750 mg PO DAILY #5 tablet 02/27/17 History of Present Illness Patient complains of: Cough History of Present Illness: CHERIE PERDUE is a 52 year old female with past medical history of SLE, RA on Humira and Plaquenil presents with one-week duration worsening cough, shortness of breath, loose stools, fevers. Patient was smoking up until the onset of her illness. In the emergency department patient was noted to have oxygen saturation 85% on room air. She recovered with nasal cannula oxygen. She was found to have left lung field pneumonia on chest x-ray. Hospital Course Hospital Course: Patient was admitted for sepsis, acute hypoxemic respiratory failure, left lower lobe pneumonia. She was initially treated with IV Rocephin and IV azithromycin until she clinically improved. Blood cultures were negative. Patient was weaned off oxygen and is stable from a respiratory standpoint at time of discharge. She is discharged on oral Levaquin. She is advised to discontinue smoking. She is advised to hold Humira and Plaquenil until follow- up with rheumatology. She will need follow-up chest x-ray in 3-4 weeks. Physical Exam Vital Signs: Temp Pulse Resp BP Pulse Ox 98.1 F 93 18 135/77 H 96 02/27/17 07:06 02/27/17 07:06 02/27/17 07:06 02/27/17 07:06 02/27/17 07:06 Intake & Output 02/26/17 02/27/17 02/28/17 06:59 06:59 06:59 Intake Total 1598 2967 Balance 1598 2967 Weight 69.2 kg 71.6 kg GENERAL: No acute distress HEENT: Conjunctiva clear, nonicteric, moist mucous membranes, edentulous, no JVD , midline trachea RESPIRATORY: Clear to auscultation bilaterally, no wheezes, no rhonchi CARDIAC: Regular rate and rhythm, no murmurs/gallops/rubs ABDOMEN: Soft, nondistended, nontender, positive bowel sounds, no rebound, no guarding EXTREMETIES: No edema, cyanosis, clubbing NEUROLOGIC: Alert, oriented to person/place/time, CN's grossly intact, no focal deficits SKIN: No rash, wounds PSYCH: Normal mood, normal affect Results Laboratory Results: 02/27/17 05:02 02/27/17 06:00 02/27/17 02/27/17 02/27/17 05:02 06:00 06:45 WBC 13.5 H RBC 3.17 L Hgb 8.7 L Hct 26.3 L MCV 83 MCH 27.5 MCHC 33.2 RDW 17.0 H Plt Count 421 Seg Neutrophils % 85.6 H Lymphocytes % 8.9 L Monocytes % 5.0 Eosinophils % 0.1 Basophils % 0.4 Absolute Neutrophils 11.6 H Absolute Lymphocytes 1.2 Absolute Monocytes 0.7 Absolute Eosinophils 0.0 Absolute Basophils 0.1 Sodium 142.4 Potassium 3.8 Chloride 108 H Carbon Dioxide 26 Anion Gap 8 BUN 11 Creatinine 0.44 L Est GFR ( Amer) > 60 Est GFR (Non-Af Amer) > 60 Glucose 149 H Calcium 9.0 Stool for White Cells NO WBCs SEEN 02/25/17 21:00 Blood Culture - Preliminary Blood NO GROWTH IN 24 HOURS 02/25/17 17:00 Blood Culture - Preliminary Blood NO GROWTH IN 24 HOURS Impressions: Chest X-Ray 02/25/17 15:26 IMPRESSION: Fairly diffuse patchy airspace densities in the left lung as noted above most consistent with a patchy pneumonic infiltrate. Qualifiers PATEINT BEING DISCHARGED WITH ANY OF THE FOLLOWING DIAGNOSIS?: No Plan Time Spent: Less than 30 Minutes
== END 2017-02-27 12:05 | disposition home or self-care (01) | DRG 871 ==
LOC: ER 12:42 → EH 16:36 → UNDOADMIN 16:38 → EH 16:38 → 3W 19:04
PROVIDERS: ADMIT Family Medicine; ATTEND Family Medicine
PROC: 3E0F73Z Introduction of Anti-inflammatory into Respiratory Tract, Via Natural or Artificial Opening (ICD-10-PCS; principal; 2017-02-26)
DX: A41.9 Sepsis, unspecified organism (principal); J18.9 Pneumonia, unspecified organism; J96.01 Acute respiratory failure with hypoxia; M06.9 Rheumatoid arthritis, unspecified; M32.9 Systemic lupus erythematosus, unspecified; E87.6 Hypokalemia; G89.29 Other chronic pain; R65.20 Severe sepsis without septic shock; K21.9 Gastro-esophageal reflux disease without esophagitis; M10.9 Gout, unspecified; F32.9 Major depressive disorder, single episode, unspecified; F41.1 Generalized anxiety disorder; B19.20 Unspecified viral hepatitis C without hepatic coma; F17.210 Nicotine dependence, cigarettes, uncomplicated; R19.7 Diarrhea, unspecified; Z90.49 Acquired absence of other specified parts of digestive tract; Z88.6 Allergy status to analgesic agent; Z79.891 Long term (current) use of opiate analgesic
CPT/HCPCS: 36415; 71020; 80048; 80053; 81001; 82607; 82728; 82746; 83540; 83550; 83690; 83735; 84466; 85025; 85045; 85652; 87040; 87045; 87205; 87493; 89055; 96361; 96374; 99291; J0456; J0696; J1170; J1650; J1720; J3480; J3490; J7030; J7060; S0119